=== PATIENT | female | born 1965 | race Caucasian/White ===

== ENCOUNTER 2018-04-19 09:43 | Emergency (ER) | payer BC ==
[2018-04-19] MEDS ORDERED: Ketorolac Tromethamine 30 MG/ML VIAL ONE (10:28)
[2018-04-19 10:47] LABS: #Basophils 0.1 thou/uL (0.0-0.2); #Eosinphils 0.2 thou/uL (0.0-0.7); #Lymphocytes 2.3 thou/uL (1.20-3.40); #Monocytes 0.6 thou/uL (0.11-0.59); #Neutrophils 7.1 thou/uL (1.40-6.50); %Basophils 0.5 % (0.0-1.0); %Eosinophils 1.5 % (0.0-10.0); %Lymphocytes 22.2 % (21.0-51.0); %Neutrophils 69.8 % (42.0-75.0); Mean Corpuscular HGB CONC 32.2 g/dL (32.0-36.0); Mean Corpuscular Hemoglobin 29.5 pg (27.0-31.0); Mean Corpuscular Volume 91.5 fL (78.0-98.0); Mean Platelet Volume 7.2 fL (7.4-10.4); Platelet Count 290 thou/uL (130-400); RBC Distribution Width 12.6 % (11.5-14.5); Red Blood Cell (RBC) Count 5.45 mill/uL (4.20-5.40); White Blood Cell (WBC) Count 10.2 thou/uL (4.8-10.8)
--- NOTE | 2018-04-19 10:57 | RAD ---
TWO VIEW CHEST: History: Cough. Comparison: 04-11-18 FINDINGS: There are bilateral pleural effusions. Bibasilar atelectasis and/or infiltrates. Mid and upper lung zones are clear. No vascular congestion apparent. Heart is mildly enlarged. IMPRESSION: Bilateral pleural effusions and bibasilar atelectasis/infiltrates. POS: [facility]
[2018-04-19] MEDS ORDERED: Lorazepam 2 MG/ML VIAL ONE (11:53)
[2018-04-19 12:23] LABS: ALT (SGPT) 25 U/L (8-55); AST (SGOT) 16 U/L (5-34); Albumin 3.9 g/dL (3.5-5.0); Alkaline Phosphatase 90 U/L (40-150); Anion Gap 14 mmol/L (10-20); BUN (Urea Nitrogen) 23 mg/dL (9.8-20.1); Bilirubin, Total 0.5 mg/dL (0.2-1.2); Calc. Creatinine Clearance 0 mL/min (70-130); Calcium 9.7 mg/dL (7.8-10.44); Carbon Dioxide 26 mmol/L (22-29); Chloride 103 mmol/L (98-107); Estimated GFR-MDRD 74; Globulin 3.3 g/dL (2.4-3.5); Glucose 102 mg/dL (70-105); Potassium 4.4 mmol/L (3.5-5.1); Protein, Total 7.2 g/dL (6.0-8.3); Sodium 139 mmol/L (136-145)
--- NOTE | 2018-04-19 13:15 | CT ---
CTA CHEST WITH CONTRAST WITH 3D VOLUME RENDERING PULMONARY EMBOLUS PROTOCOL: CLINICAL INDICATION: Dyspnea, a 52-year-old female. FINDINGS: There is elevation of the right hemidiaphragm with adjacent right basilar atelectasis/consolidation. No discrete filling defect of the pulmonary arterial system is identified. There is limitation at t he subsegmental branches due to heterogeneity of distal contrast bolus which could potentially obscur e small peripheral emboli. The thoracic aorta is nonaneurysmal with mild scattered vascular calcific ation. No evidence of significant effusion or discrete pneumothorax. Mild left basilar atelectasis is present in a dependent configuration. Incidental node of cholelithiasis and hepatic cyst formatio n. There is hepatic steatosis. Scattered osseous degenerative change present. There is redemonstra tion of a right adrenal mass, incompletely evaluated. IMPRESSION: 1. No large, central pulmonary embolus. 2. Elevation of right hemidiaphragm with adjacent consolidation that may be related to atelectasis o r alternatively right basilar pneumonia. 3. Mild dependent left basilar atelectasis. 4. Cholelithiasis. Consider gallbladder ultrasound for further evaluation. POS: [facility]
[2018-04-19] MEDS ORDERED: Iopamidol 370 76% 50 ML VIAL FS ONE (16:53)
== END 2018-04-19 12:50 | disposition home or self-care (01) ==
LOC: ERS 09:43
DX: R07.89 Other chest pain (principal); R06.00 Dyspnea, unspecified; I10 Essential (primary) hypertension; F41.9 Anxiety disorder, unspecified; F17.210 Nicotine dependence, cigarettes, uncomplicated; Z79.899 Other long term (current) drug therapy; Z86.73 Personal history of transient ischemic attack (TIA), and cerebral infarction without residual deficits
CPT/HCPCS: 36415; 71046; 71275; 80053; 83880; 84484; 85025; 85379; 93005; 96374; 96375; J1885; J2060

== ENCOUNTER 2019-02-14 13:12 | Outpatient (CLI) | payer BC | END 2019-02-14 13:13 | disposition home or self-care (01) | LOC: DTY/OP 13:12 | PROVIDERS: ATTEND Specialist | DX: Z01.818 Encounter for other preprocedural examination (principal); E66.01 Morbid (severe) obesity due to excess calories | CPT/HCPCS: 97802 ==

== ENCOUNTER 2019-05-10 08:39 | Outpatient (CLI) | payer BC ==
[2019-05-10 13:59] LABS: #Eosinphils 0.1 thou/uL (0.0-0.7); #Lymphocytes 2.3 thou/uL (1.20-3.40); #Monocytes 0.4 thou/uL (0.11-0.59); #Neutrophils 5.1 thou/uL (1.40-6.50); %Basophils 0.2 % (0.0-1.0); %Eosinophils 1.4 % (0.0-10.0); %Monocytes 4.6 % (0.0-10.0); %Neutrophils 64.8 % (42.0-75.0); Hemoglobin 15.5 g/dL (12.0-16.0); Mean Corpuscular HGB CONC 32.1 g/dL (32.0-36.0); Mean Corpuscular Hemoglobin 29.5 pg (27.0-31.0); Mean Corpuscular Volume 92.1 fL (78.0-98.0); Mean Platelet Volume 6.6 fL (7.4-10.4); Platelet Count 319 thou/uL (130-400); RBC Distribution Width 12.2 % (11.5-14.5); Red Blood Cell (RBC) Count 5.25 mill/uL (4.20-5.40); White Blood Cell (WBC) Count 7.8 thou/uL (4.8-10.8)
[2019-05-10 14:20] LABS: Anion Gap 15 mmol/L (10-20); BUN (Urea Nitrogen) 17 mg/dL (9.8-20.1); Calc. Creatinine Clearance 0 mL/min (70-130); Calcium 9.3 mg/dL (7.8-10.44); Carbon Dioxide 28 mmol/L (22-29); Chloride 104 mmol/L (98-107); Estimated GFR-MDRD 69; Glucose 93 mg/dL (70-105); Potassium 4.6 mmol/L (3.5-5.1); Sodium 142 mmol/L (136-145)
== END 2019-05-10 08:40 | disposition home or self-care (01) ==
LOC: LABBT 08:39
PROVIDERS: ATTEND Specialist
DX: Z01.812 Encounter for preprocedural laboratory examination (principal); E66.01 Morbid (severe) obesity due to excess calories
CPT/HCPCS: 80048; 85025

== ENCOUNTER 2019-05-10 12:00 | Inpatient (IN) | payer BC ==
[2019-05-10 12:53] VITALS: BMI 50.3
[2019-05-16] MEDS ORDERED: ceFOXitin 2 GM/50 ML Duplex BAG ONE (06:30)
[2019-05-16] MEDS ORDERED: Heparin 5,000 UNITS/ML VIAL ONE (06:31)
[2019-05-16] MEDS ORDERED: Scopolamine 1.5 mg/72 hour Patch ONE (06:31)
[2019-05-16] MEDS ORDERED: Ketorolac Tromethamine 30 MG/ML VIAL ONE ×2 (06:31→12:12)
[2019-05-16] MEDS ORDERED: Midazolam HCl 2 mg/2 ml Vial ONE ×2 (06:41→07:13)
[2019-05-16] MEDS ORDERED: Fentanyl 100 MCG/2 ML VIAL ONE ×3 (06:41→11:01)
[2019-05-16] MEDS ORDERED: Lidocaine 1% w/Epinephrine 1:100K 20 ML VIAL ONE (06:46)
[2019-05-16] MEDS ORDERED: Bupivacaine 0.25% HCL 30 ML VIAL ONE (06:46)
[2019-05-16] MEDS ORDERED: Acetaminophen 500 MG TAB ONE (07:13)
[2019-05-16] MEDS ORDERED: Lidocaine 1% PF 5 ML VIAL ONE (09:20)
[2019-05-16] MEDS ORDERED: Glycopyrrolate 0.2 MG/ML 5 ML SYRINGE ONE (09:20)
[2019-05-16] MEDS ORDERED: PROPOFOL 200 MG/20 ML VIAL ONE (09:20)
[2019-05-16] MEDS ORDERED: Dexamethasone 20 MG/5 ML VIAL ONE (09:20)
[2019-05-16] MEDS ORDERED: Ondansetron PF 4 MG/2 ML Vial ONE (09:20)
[2019-05-16] MEDS ORDERED: Rocuronium Bromide 10 MG/ML (10ML VIAL) ONE (09:20)
[2019-05-16] MEDS ORDERED: Promethazine HCl 25 MG/ML VIAL IM PRN ×2 (10:17→12:03)
[2019-05-16] MEDS ORDERED: Ondansetron HCl/PF 4 MG/2 ML Vial IVP PRN (10:17)
[2019-05-16] MEDS ORDERED: Promethazine HCl 25 MG/ML VIAL SLOW IVP PRN (10:17)
[2019-05-16] MEDS ORDERED: Promethazine HCl 25 MG/ML VIAL ONE (10:32)
[2019-05-16] MEDS ORDERED: Hydrocodone-Acetamin 15 ML UDCUP PO PRN (12:03)
[2019-05-16] MEDS ORDERED: Morphine 4 MG/ML VIAL SLOW IVP PRN (12:03)
[2019-05-16] MEDS ORDERED: Dextrose 50% Abboject 50 ML SYRINGE SLOW IVP PRN (12:03)
[2019-05-16] MEDS ORDERED: Insulin Regular 300 UNITS/3 ML VIAL SC PRN (12:03)
[2019-05-16] MEDS ORDERED: Dextrose 5% in Water 1,000 ML IV PRN (12:03)
[2019-05-16] MEDS ORDERED: diphenhydrAMINE 50 MG/ML VIAL IVP PRN (12:03)
[2019-05-16] MEDS ORDERED: hydrALAZINE 20 MG/ML VIAL SLOW IVP PRN (12:03)
[2019-05-16] MEDS ORDERED: D5 1/2 NS w/20 mEq KCL 1,000 ML ONE (12:12)
[2019-05-16] MEDS: D5 1/2 NS w/20 mEq KCL 1,000 ML IV SCH ×2 (12:17→16:46)
[2019-05-16] MEDS: Ketorolac Tromethamine 30 MG/ML VIAL IVP SCH ×2 (12:17→17:29)
[2019-05-16] MEDS ORDERED: Pantoprazole 40 MG VIAL IVP SCH (12:30)
[2019-05-16] MEDS ORDERED: Morphine 2 MG/ML SYRINGE ONE (13:40)
[2019-05-16] MEDS: Ondansetron PF 4 MG/2 ML Vial IVP PRN (16:42)
[2019-05-16] MEDS: Morphine 2 MG/ML SYRINGE SLOW IVP PRN ×2 (17:27→22:18)
[2019-05-16] MEDS ORDERED: Enoxaparin Sodium 40 MG/0.4 ML SYRINGE SC SCH (21:00)
[2019-05-16] MEDS ORDERED: Amlodipine 5 MG TAB PO SCH (21:00)
[2019-05-17] MEDS: Ondansetron PF 4 MG/2 ML Vial IVP PRN (01:21)
[2019-05-17] MEDS: Ketorolac Tromethamine 30 MG/ML VIAL IVP SCH ×2 (01:21→05:23)
[2019-05-17 05:22] LABS: #Lymphocytes 1.7 thou/uL (1.20-3.40); #Monocytes 0.8 thou/uL (0.11-0.59); #Neutrophils 10.1 thou/uL (1.40-6.50); %Basophils 0.2 % (0.0-1.0); %Eosinophils 0.1 % (0.0-10.0); %Lymphocytes 13.7 % (21.0-51.0); %Monocytes 6.2 % (0.0-10.0); %Neutrophils 79.7 % (42.0-75.0); Hemoglobin 13.2 g/dL (12.0-16.0); Mean Corpuscular HGB CONC 31.4 g/dL (32.0-36.0); Mean Corpuscular Hemoglobin 29.4 pg (27.0-31.0); Mean Corpuscular Volume 93.7 fL (78.0-98.0); Mean Platelet Volume 6.5 fL (7.4-10.4); Platelet Count 275 thou/uL (130-400); RBC Distribution Width 12.3 % (11.5-14.5); Red Blood Cell (RBC) Count 4.48 mill/uL (4.20-5.40); White Blood Cell (WBC) Count 12.6 thou/uL (4.8-10.8)
[2019-05-17] MEDS: D5 1/2 NS w/20 mEq KCL 1,000 ML IV SCH ×2 (05:35)
[2019-05-17 05:47] LABS: Anion Gap 12 mmol/L (10-20); BUN (Urea Nitrogen) 11 mg/dL (9.8-20.1); Calc. Creatinine Clearance 157 mL/min (70-130); Calcium 8.9 mg/dL (7.8-10.44); Carbon Dioxide 26 mmol/L (22-29); Chloride 105 mmol/L (98-107); Estimated GFR-MDRD 69; Glucose 133 mg/dL (70-105); Potassium 4.6 mmol/L (3.5-5.1); Sodium 138 mmol/L (136-145)
--- NOTE | 2019-05-17 05:59 | OP ---
DATE OF PROCEDURE: 05/16/2019 PREOPERATIVE DIAGNOSES: Morbid obesity, symptomatic cholelithiasis, suspected hepatic cyst. POSTOPERATIVE DIAGNOSES: Morbid obesity, symptomatic cholelithiasis, suspected hepatic cyst with finding of a hepatic cyst adjacent to the gallbladder. PROCEDURE PERFORMED: Laparoscopic vertical sleeve gastrectomy, laparoscopic cholecystectomy, hepatic cystotomy. MOLDED GOODS SPOT PICKER: José Miguel Arana, medical student. ANESTHESIA: General endotracheal. INDICATIONS: The patient is a morbidly obese 53-year-old white female. She has undergone preoperative evaluation and education, presents at this time for laparoscopic sleeve gastrectomy. She also is recognized to have gallstones, which upon question are symptomatic. CT scan also documented a lesion adjacent to the gallbladder that is likely a hepatic cyst. DESCRIPTION OF OPERATION: Informed consent was obtained. The patient was taken to the operating room, where general endotracheal anesthesia was obtained with the patient in supine position. Abdomen was prepped with ChloraPrep and draped in sterile fashion. Local anesthetic was infiltrated using a mixture of 1% lidocaine with epinephrine and 0.25% Marcaine. A 5-mm supraumbilical incision was created through which a Veress needle was passed into the peritoneal cavity and pneumoperitoneum was established using carbon dioxide up to pressure of 15 mmHg. A 5-mm trocar port was passed through this same incision. Laparoscopic camera was passed this port. Under direct vision, I placed two right-sided abdominal ports including a 5 mm right subcostal port and a 12 mm right paramedian port. Attention was turned to the left side of the abdomen. There were extensive adhesions to the anterior abdominal wall throughout the left upper abdomen secondary to her prior adrenalectomy. These were all lysed carefully with the LigaSure device. This required a lengthy period of time. When all of these adhesions were lysed, including up to the spleen, two left-sided ports were placed including a 5-mm left subcostal port and a 15-mm left paramedian port. The patient was recognized to have persistently fatty liver in spite of her preoperative weight loss. A Louis retractor was passed through a 5-mm incision in the epigastrium and used to retract the left lobe of the liver. The hiatus was inspected and there was found to be no evidence of a hiatal hernia. The pylorus was identified and beginning about 5 cm proximal to the pylorus, the greater curvature of the stomach was cleared using the LigaSure device, dividing all omental and vascular tissue up to and including the short gastric vessels. The posterior aspect of the stomach was fully mobilized as well. There were adhesions in this area secondary to her adrenalectomy. The left sarah of the diaphragm was mobilized as well. The ViSiGi device was positioned at the level of the pylorus and placed to suction, leaving the stomach nicely decompressed. The vertical sleeve gastrectomy was performed with the series of fires of the Shaw stapler using a green load, followed by a gold load, followed by series of blue loads. These were placed adjacent to the ViSiGi device, taking care not to narrow the sleeve at the incisura or at the gastroesophageal junction. When the stomach was fully divided, the sleeve was insufflated with air using the ViSiGi while the staple line was under water. There was no evidence of air leak. The resected portion of the stomach was removed through the 15-mm port site and the fascia was closed with 0 Vicryl suture using a GraNee needle. Clips were placed along the staple line to obtain appropriate hemostasis. Attention was turned to the gallbladder. The patient's fatty liver and extensive obesity made visualization of the gallbladder difficult. This was grasped and retracted in a cephalad direction. I placed an additional right epigastric port to allow for dissection. I have obtained a triangle snake retractor and used this to retract the left lobe of the liver as well as the retroperitoneal fatty tissue. I was able to dissect the apex of the gallbladder and identify the cystic duct and cystic artery. These were each divided between clips, leaving two on the side to remain within the abdomen. During the dissection, a hole was created in the gallbladder secondary to retraction and a few gallstones fell out through this. These were all retrieved and set aside. The gallbladder was then dissected out of the gallbladder fossa using electrocautery. Hemostasis was meticulous. The gallbladder and gallstones were placed in a specimen retrieval sac and removed through the 15-mm port site. The right upper quadrant was copiously irrigated. All irrigant was aspirated. The clip sites were inspected and found to be intact. I also closed the fascia at the 12-mm port site with 0 Vicryl suture. All ports and instruments were removed under direct vision. Pneumoperitoneum was carefully evacuated. 0.25% Marcaine with epinephrine was infiltrated at each port site. Skin edges were approximated with 4-0 Monocryl subcuticular suture. Dermabond was placed externally. There were no complications. The patient tolerated the procedure well and was taken to the recovery room in stable condition. Job ID: [id number]
[2019-05-17] MEDS: Morphine 2 MG/ML SYRINGE SLOW IVP PRN (08:59)
[2019-05-17] MEDS ORDERED: Pantoprazole 40 MG VIAL IVP SCH (09:00)
[2019-05-17 10:58] VITALS: BP 153/95; TEMP 98.4
--- NOTE | 2019-05-20 01:36 | PQF ---
MICHELLE DICKENS MICHAEL W MD [id number] [facility] [id number] CLINICAL DOCUMENTATION CLARIFICATION FORM: POST DISCHARGE Addendum to original discharge summary date: ____ Late entry note date: __ DATE:05/20/2019 ATTN: Cesar Taylor Please exercise your independent, professional judgment in responding to the clarification form. Clinical indicators are provided on the bottom of this form for your review Final Diagnosis on the Pathology report: Chronic Cholecystis with Cholelithiasis Clarification of Pathology report: Please check appropriate box(s): [x ] Agree w the pathology finding of Chronic Cholecystis with Cholelithiasis [ ] Other explanation of pathology findings (please specify) [ ] Other diagnosis [ ] Unable to determine For continuity of documentation, please document condition throughout progress notes and discharge summary. Thank You. CLINICAL INDICATORS - SIGNS/ SYMPTOMS / LABS Pathology report 05/16 Impression : Chronic Cholecystis Pathology report 05/16 Impression : Cholelithiasis RISK FACTORS Operative report 05/16 symptomatic Cholelithiasis Operative report 05/16 Findings of Hepatic Cyst adjacent to gallblader Operative report 05/16 Morbid Obesity TREATMENTS Operative report 05/16 Laparoscopic Cholecystectomy Operative report 05/16 Laparoscopic Vertical Sleeve Gastrectomy (This form is maintained as a part of the permanent medical record) 2014 [email or web address] All Rights Reserved [email or web address]
== END 2019-05-17 11:30 | disposition home or self-care (01) | DRG 620 ==
LOC: SURG A 05-16 06:14 → SJJU 05-16 14:25
PROVIDERS: ADMIT Specialist; ATTEND Specialist
PROC: 0DB64Z3 Excision of Stomach, Percutaneous Endoscopic Approach, Vertical (ICD-10-PCS; principal; 2019-05-16)
PROC: 0FT44ZZ Resection of Gallbladder, Percutaneous Endoscopic Approach (ICD-10-PCS; 2019-05-16)
DX: E66.01 Morbid (severe) obesity due to excess calories (principal); K80.10 Calculus of gallbladder with chronic cholecystitis without obstruction; K76.89 Other specified diseases of liver; F41.9 Anxiety disorder, unspecified; I10 Essential (primary) hypertension; Z79.899 Other long term (current) drug therapy; Z68.43 Body mass index [BMI] 50.0-59.9, adult; Z87.891 Personal history of nicotine dependence
CPT/HCPCS: 36415; 36416; 80048; 85025; 88304; 88307; 88312; C9113; J0694; J1100; J1644; J1650; J1815; J1885; J2001; J2250; J2270; J2405; J2550; J2704; J3010; S0020

== ENCOUNTER 2019-06-14 12:30 | Day surgery (SDC) | payer BC ==
[2019-06-14] MEDS ORDERED: Thiamine HCl 200 MG/2 ML VIAL SLOW IVP SCH (13:00)
[2019-06-14] MEDS: Lactated Ringer's 1,000 ML IV SCH ×2 (13:02→14:04)
[2019-06-14] MEDS ORDERED: Ondansetron PF 4 MG/2 ML Vial IVP SCH (13:15)
[2019-06-14] MEDS ORDERED: Sodium Chloride 0.9% 20 ML ONE (13:16)
[2019-06-14] MEDS ORDERED: Nitroglycerin 0.4 MG TAB (25 Tab Bottle) ONE (13:16)
== END 2019-06-14 15:21 | disposition home or self-care (01) ==
LOC: ONC/OP 12:30
PROVIDERS: ATTEND Specialist
DX: E86.0 Dehydration (principal); Z98.84 Bariatric surgery status
CPT/HCPCS: 36415; 80048; 85025; 96361; 96374; 96375; J2405; J3411

== ENCOUNTER 2021-03-25 08:24 | Inpatient (IN) | payer BC ==
[2021-03-31 10:01] VITALS: BMI 32.1
[2021-04-01] MEDS ORDERED: cefOXitin Sodium/Dextrose 2 GM/50 ML BAG ONE (09:14)
[2021-04-01] MEDS ORDERED: Ketorolac Tromethamine 30 MG/ML VIAL ONE (09:14)
[2021-04-01] MEDS ORDERED: Acetaminophen 500 MG TAB ONE (09:14)
[2021-04-01] MEDS ORDERED: Lidocaine 1% w/Epinephrine 1:100K 20 ML VIAL ONE (10:23)
[2021-04-01] MEDS ORDERED: Bupivacaine 0.25% 10 ML VIAL ONE (10:23)
[2021-04-01] MEDS ORDERED: Fentanyl 100 MCG/2 ML VIAL ONE ×2 (10:32→12:55)
[2021-04-01] MEDS ORDERED: Midazolam HCl 2 mg/2 ml Vial ONE ×2 (10:32)
[2021-04-01] MEDS ORDERED: PROPOFOL 200 MG/20 ML VIAL ONE (11:05)
[2021-04-01] MEDS ORDERED: Lidocaine 1% PF 5 ML VIAL ONE (11:05)
[2021-04-01] MEDS ORDERED: Esmolol 100 MG/10 ML VIAL ONE (11:05)
[2021-04-01] MEDS ORDERED: Rocuronium Bromide 10 MG/ML (10ML VIAL) ONE (11:05)
[2021-04-01] MEDS ORDERED: Metoclopramide HCl 10 MG/2 ML VIAL ONE (11:05)
[2021-04-01] MEDS ORDERED: Dexamethasone 20 MG/5 ML VIAL ONE (11:05)
[2021-04-01] MEDS ORDERED: diphenhydrAMINE 50 MG/ML VIAL ONE (11:05)
[2021-04-01] MEDS ORDERED: Glycopyrrolate 0.2 MG/ML 5 ML SYRINGE ONE (11:05)
[2021-04-01] MEDS ORDERED: Ondansetron PF 4 MG/2 ML Vial ONE (11:05)
[2021-04-01] MEDS ORDERED: HYDROmorphone 0.5 MG/0.5 ML SYRINGE ONE (12:36)
[2021-04-01] MEDS ORDERED: Ondansetron PF 4 MG/2 ML Vial IVP PRN (12:40)
[2021-04-01] MEDS ORDERED: Promethazine HCl 25 MG/ML VIAL IM PRN (12:40)
[2021-04-01] MEDS ORDERED: Morphine 4 MG/ML VIAL SLOW IVP PRN ×2 (12:40→12:48)
[2021-04-01] MEDS ORDERED: D5 1/2 NS w/20 mEq KCL 1,000 ML IV SCH (12:40)
[2021-04-01] MEDS ORDERED: hydrALAZINE 20 MG/ML VIAL SLOW IVP PRN (12:40)
[2021-04-01] MEDS ORDERED: HYDROcodone/Acetaminophen 5/325 mg Tablet ONE (14:04)
[2021-04-01] MEDS ORDERED: Ketorolac Tromethamine 30 MG/ML VIAL IVP SCH (15:00)
[2021-04-01] MEDS ORDERED: Famotidine/PF 20 mg/2ml Vial SLOW IVP SCH (21:00)
[2021-04-01] MEDS ORDERED: Famotidine 20 MG TAB PO SCH (21:00)
[2021-04-01] MEDS ORDERED: Enoxaparin Sodium 40 MG/0.4 ML SYRINGE SC SCH (21:00)
[2021-04-02] MEDS ORDERED: HYDROcodone/Acetaminophen 7.5/325 mg Tablet PO PRN ×2 (10:31)
== END 2021-04-01 14:45 | disposition home or self-care (01) | DRG 340 ==
LOC: SURG A 04-01 08:30
PROVIDERS: ADMIT Specialist; ATTEND Specialist
PROC: 0DTJ4ZZ Resection of Appendix, Percutaneous Endoscopic Approach (ICD-10-PCS; principal; 2021-04-01)
DX: K35.33 Acute appendicitis with perforation, localized peritonitis, and gangrene, with abscess (principal); R19.00 Intra-abdominal and pelvic swelling, mass and lump, unspecified site; I10 Essential (primary) hypertension; F41.9 Anxiety disorder, unspecified; Z20.822 Contact with and (suspected) exposure to COVID-19; Z98.84 Bariatric surgery status; Z98.51 Tubal ligation status; Z90.89 Acquired absence of other organs; Z01.812 Encounter for preprocedural laboratory examination
CPT/HCPCS: 80048; 85025; 88304; 93005; 93010; J0694; J1100; J1170; J1200; J1885; J2250; J2405; J2704; J2765; J3010; S0020; U0003; U0005

== ENCOUNTER 2021-03-29 11:34 | Outpatient (CLI) | payer BC ==
[2021-03-29 12:54] LABS: #Basophils 0.1 10x3/uL (0.0-0.2); #Eosinphils 0.1 10x3/uL (0.0-0.5); #Monocytes 0.4 10x3/uL (0.0-1.1); #Neutrophils 5.5 10x3/uL (1.5-8.4); %Basophils 0.7 % (0.0-2.0); %Eosinophils 1.5 % (0.0-6.0); %Lymphocytes 24.9 % (18.0-47.0); %Neutrophils 67.7 % (40.0-75.0); Hemoglobin 14.8 g/dL (12.0-15.5); Mean Corpuscular Hemoglobin 29.9 pg (27.0-33.0); Mean Corpuscular Volume 93.5 fl (81.6-98.3); Mean Platelet Volume 9.3 fl (7.4-10.4); Platelet Count 265 10x3/uL (150-450); RBC Distribution Width 14.2 % (11.5-14.5); Red Blood Cell (RBC) Count 4.95 10x6/uL (3.90-5.03); White Blood Cell (WBC) Count 8.2 10x3/uL (3.5-10.5)
[2021-03-29 13:15] LABS: Anion Gap 13 mmol/L (10-20); BUN (Urea Nitrogen) 13 mg/dL (9.8-20.1); Calc. Creatinine Clearance 0 mL/min (70-130); Calcium 9.5 mg/dL (7.8-10.44); Carbon Dioxide 27 mmol/L (22-29); Chloride 106 mmol/L (98-107); Glucose 84 mg/dL (70-105); Potassium 4.1 mmol/L (3.5-5.1); Sodium 142 mmol/L (136-145)
[2021-03-30 00:17] LABS: SARS-CoV-2 PCR by NAA Not Detected (NotDetected)
== END 2021-03-29 11:35 | disposition home or self-care (01) ==
LOC: LABBT 11:34
PROVIDERS: ATTEND Specialist
DX: Z01.812 Encounter for preprocedural laboratory examination (principal); R19.00 Intra-abdominal and pelvic swelling, mass and lump, unspecified site; Z20.822 Contact with and (suspected) exposure to COVID-19
CPT/HCPCS: 80048; 85025; U0003; U0005

== ENCOUNTER 2022-05-18 14:20 | Outpatient (CLI) | payer BC | END 2022-05-18 14:21 | disposition home or self-care (01) | LOC: ULT 14:20 | PROVIDERS: ATTEND Family Medicine | DX: R42 Dizziness and giddiness (principal); Z86.73 Personal history of transient ischemic attack (TIA), and cerebral infarction without residual deficits | CPT/HCPCS: 93880 ==